=== PATIENT | male | born 1975 | race Caucasian/White ===

== ENCOUNTER 2017-04-04 18:18 | Emergency (ER) | payer OTHER ==
[~2017-04-04] VITALS: Ht 198.1 cm; Wt 120.2 kg
--- NOTE | 2017-04-04 18:42 | PHYS DOC ---
Adult General Chief Complaint Chief Complaint: HEAT EXPOSURE HPI HPI Patient is a 42 year old gentleman who has a history significant for non- insulin-dependent diabetes, hypertension, no history of liver lung or kidney problems. Denies any history of strokes or MIs in the past. Denies any abdominal surgeries except for a cholecystectomy many years ago. Denies any tobacco alcohol or drugs. Is not allergic to any medications. Patient presented to the ER today secondary to a syncopal episode that occurred earlier today while he was at [employer]. Patient reports that the growth [employer] Approximately noon time and he was doing well. Patient reports he ate a barbecue sandwich for lunch. 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 Patient reports that prior to this a couple episode he felt cool clammy and sweaty. Patient denied any chest pain shortness of breath or diarrhea. Patient reports that earlier today he had 2 episodes of nausea vomiting for the syncopal episode. Patient denies any bowel movements earlier today. Patient's physical exam is unremarkable. Patient's alert awake oriented 3. Patient is in good spirits. Patient's heart was regular rate and rhythm. Lungs were clear with no wheezing rales or rhonchi. Abdomen was soft nontender no rebound or guarding. There is no palpable masses. Extremities were without clubbing cyanosis or edema. Patient does have axillary sweat. Patient's his mucus membranes are dry. Assessment and plan this is a 42-year-old gentleman who likely presents with a syncopal episode secondary to dehydration and heat exposure. Patient will have an EKG done. Patient's EKG revealed normal sinus rhythm at a heart rate of [address]-T wave abnormalities without any evidence of ST elevation NE. We will check patient's CBC chemistry and troponin. Patient will be hydrated in the ER with 2 L of normal saline. Patient will be reevaluated for possible discharged home if all his labs remained stable and patient maintained stable try to stay. I believe that the symptoms are most likely secondary to dehydration secondary to being outside in the heat. 936: Patient's labs were all unremarkable except for an elevated creatinine and WBCs in the urine. I believe that the elevated creatinine is likely secondary to dehydration versus chronic and is not acute issue. I will discuss this with the patient and he will need to have his labs repeated within a week. We will start the patient does Rocephin and IV antibiotics given the white cells in his urine. Patient is otherwise clinically and hemodynamically stable feels much improved be discharged home in stable condition. Review of Systems Review of Systems Constitutional: Denies fever or chills [] Eyes: Denies change in visual acuity, redness, or eye pain [] All other review systems are negative except as documented in the history of present illness portion. Current Medications Current Medications Current Medications Medications (Trade) Dose Ordered Sig/Stu Start Time Stop Time Status Last Admin Dose Admin Ceftriaxone Sodium 50 ml @ 100 mls/hr 1X ONCE 04/04/17 22:00 04/04/17 22:20 DC 04/04/17 21:36 100 MLS/HR Sodium Chloride 1,000 ml @ 1,000 mls/hr 1X ONCE 04/04/17 18:45 04/04/17 19:44 DC 04/04/17 20:06 1,000 MLS/HR Allergies Allergies Allergies Coded Allergies Type Severity Reaction Last Updated Verified No Known Drug Allergies 04/04/17 No Physical Exam Physical Exam Constitutional: Well developed, well nourished, no acute distress, non-toxic appearance. [] HENT: Normocephalic, atraumatic, bilateral external ears normal, oropharynx moist, no oral exudates, nose normal. [] Eyes: PERRLA, EOMI, conjunctiva normal, no discharge. [] Neck: Normal range of motion, no tenderness, supple, no stridor. [] Cardiovascular:Heart rate regular rhythm, no murmur [] Lungs & Thorax: Bilateral breath sounds clear to auscultation [] Abdomen: Bowel sounds normal, soft, no tenderness, no masses, no pulsatile masses. [] Skin: Warm, dry, no erythema, no rash. [] Back: No tenderness, no CVA tenderness. [] Extremities: No tenderness, no cyanosis, no clubbing, ROM intact, no edema. [] Neurologic: Alert and oriented X 3, normal motor function, normal sensory function, no focal deficits noted. [] Psychologic: Affect normal, judgement normal, mood normal. [] Current Patient Data Vital Signs Vital Signs Date Time Temp Pulse Resp B/P (MAP) Pulse Ox O2 Delivery O2 Flow Rate FiO2 04/04/17 22:17 86 132/58 (82) Room Air 04/04/17 19:25 99 04/04/17 18:18 98.1 16 98.1 Lab Values Laboratory Tests Test 04/04/17 18:32 04/04/17 18:35 04/04/17 21:03 Sodium Level 139 mmol/L (136-145) Potassium Level 4.0 mmol/L (3.5-5.1) Chloride Level 101 mmol/L (98-107) Carbon Dioxide Level 23 mmol/L (21-32) Anion Gap 15 (6-14) H Blood Urea Nitrogen 27 mg/dL (8-26) H Creatinine 2.5 mg/dL (0.7-1.3) H Estimated GFR (Cockcroft-Gault) 28.6 BUN/Creatinine Ratio 11 (6-20) Glucose Level 276 mg/dL (70-99) H Calcium Level 9.1 mg/dL (8.5-10.1) Total Bilirubin 0.4 mg/dL (0.2-1.0) Aspartate Amino Transferase (AST) 22 U/L (15-37) Alanine Aminotransferase (ALT) 47 U/L (16-63) Alkaline Phosphatase 72 U/L (46-116) Troponin I Quantitative < 0.017 ng/mL (0.000-0.055) Total Protein 7.6 g/dL (6.4-8.2) Albumin 4.0 g/dL (3.4-5.0) Albumin/Globulin Ratio 1.1 (1.0-1.7) White Blood Count 11.2 x10^3/uL (4.0-11.0) H Red Blood Count 4.70 x10^6/uL (4.30-5.70) Hemoglobin 13.8 g/dL (13.0-17.5) Hematocrit 41.2 % (39.0-53.0) Mean Corpuscular Volume 88 fL (79-100) Mean Corpuscular Hemoglobin 29 pg (25-35) Mean Corpuscular Hemoglobin Concent 33 g/dL (31-37) Red Cell Distribution Width 12.5 % (11.5-14.5) Platelet Count 305 x10^3/uL (140-400) Neutrophils (%) (Auto) 76 % (31-73) H Lymphocytes (%) (Auto) 15 % (24-48) L Monocytes (%) (Auto) 8 % (0-9) Eosinophils (%) (Auto) 0 % (0-3) Basophils (%) (Auto) 1 % (0-3) Neutrophils # (Auto) 8.5 x10^3uL (1.8-7.7) H Lymphocytes # (Auto) 1.7 x10^3/uL (1.0-4.8) Monocytes # (Auto) 0.9 x10^3/uL (0.0-1.1) Eosinophils # (Auto) 0.0 x10^3/uL (0.0-0.7) Basophils # (Auto) 0.1 x10^3/uL (0.0-0.2) Urine Collection Type Void Urine Color Yellow Urine Clarity Cloudy Urine pH 5.0 Urine Specific Mcclure 1.020 Urine Protein 30 mg/dL (NEG-TRACE) Urine Glucose (UA) 500 mg/dL (NEG) Urine Ketones (Stick) Trace mg/dL (NEG) Urine Blood Negative (NEG) Urine Nitrite Negative (NEG) Urine Bilirubin Negative (NEG) Urine Urobilinogen Dipstick 0.2 mg/dL (0.2 mg/dL) Urine Leukocyte Esterase Negative (NEG) Urine RBC 0 /HPF (0-2) Urine WBC 11-20 /HPF (0-4) Urine Squamous Epithelial Cells Few /LPF Urine Bacteria Moderate /HPF (0-FEW) Urine Hyaline Casts Moderate /HPF Urine Mucus Mod /LPF Laboratory Tests 04/04/17 18:35 Laboratory Tests 04/04/17 18:32 Microbiology 04/04/17 Urine Culture - Final, Complete 04/04/17 Urine Culture Result 1 ([facility]) - Final, Complete EKG EKG [] Radiology/Procedures Radiology/Procedures [] Course & Med Decision Making Course & Med Decision Making Pertinent Labs and Imaging studies reviewed. (See chart for details) [] Dragon Disclaimer Dragon Disclaimer This electronic medical record was generated, in whole or in part, using a voice recognition dictation system. Departure Departure Impression: Primary Impression: Elevated serum creatinine Additional Impressions: Dehydration Heat exhaustion Disposition: HOME, SELF-CARE Condition: IMPROVED Patient Instructions: Creatinine, Blood (Serum Creatinine), Urinary Tract Infection Additional Instructions: Please follow up with her doctor to have your kidney function checked. Her creatinine was elevated today which might be secondary to being dehydration however you need to have that repeated to make sure that it is not from any intrinsic kidney problems. Your test results also revealed that you have some white blood cells in her urine. We are giving you a dose of IV antibiotics and will be sending you home with a prescription for Keflex to take. Again your urine will need to be repeated by her primary care physician within 1 week to make sure that the infection has cleared. Scripts Cephalexin (KEFLEX) 500 Mg Capsule 500 MG PO QID for 10 Days, CAP Prov: KARINA BOCANEGRA MD 04/04/17 Problem Qualifiers KARINA BOCANEGRA MD Apr 04, 2017 18:42
[2017-04-04] MEDS ORDERED: SITA1TAB7 PO (18:45)
[2017-04-04] MEDS ORDERED: IV NORMAL SALINE 1000ML BAG 1,000 ML IV ONE ×2 (18:45)
[2017-04-04] MEDS ORDERED: CANA300T PO (18:45)
[2017-04-04] MEDS ORDERED: LISI-334 PO (18:45)
[2017-04-04 18:49] LABS: BASO # 0.1 x10^3/uL (0.0-0.2); BASO % 1 % (0-3); EOS % 0 % (0-3); HEMATOCRIT 41.2 % (39.0-53.0); HEMOGLOBIN 13.8 g/dL (13.0-17.5); LYMPH # 1.7 x10^3/uL (1.0-4.8); LYMPH % 15 % (24-48); MEAN CORPUSCULAR HEMOGLOBIN 29 pg (25-35); MEAN CORPUSCULAR HGB CONC 33 g/dL (31-37); MEAN CORPUSCULAR VOLUME 88 fL (79-100); MONO % 8 % (0-9); NEUT % 76 % (31-73); PLATELET COUNT 305 x10^3/uL (140-400); RED CELL DISTRIBUTION WIDTH 12.5 % (11.5-14.5); WHITE BLOOD COUNT 11.2 x10^3/uL (4.0-11.0)
[2017-04-04 18:56] LABS: CALCIUM 9.1 mg/dL (8.5-10.1); CREATININE 2.5 mg/dL (0.7-1.3); GFR 28.6
--- NOTE | 2017-04-04 18:58 | EKG ---
[facility] [address] [place] [address] Test Date: 2017-04-04 Test Time: 18:29:34 Pat Name: JACKSON DOYLE Department: Room: Gender: M [employer]: : 1975 Requested By: KARINA BOCANEGRA Order Number: [id number] Reading MD: Measurements Intervals [place] Rate: 92 P: -126 [place]: 128 QRS: 55 QRSD: 90 T: 43 QT: 332 QTc: 415 Interpretive Statements SINUS RHYTHM OTHERWISE NORMAL ECG RI6.01 No previous ECG available for comparison
[2017-04-04 19:02] LABS: ALBUMIN/GLOBULIN RATIO 1.1 (1.0-1.7); TOTAL BILIRUBIN 0.4 mg/dL (0.2-1.0); TOTAL PROTEIN 7.6 g/dL (6.4-8.2)
[2017-04-04 21:08] LABS: BILIRUBIN,URINE NEGATIVE (NEG); GLUCOSE,URINE 500 mg/dL (NEG); NITRITE,URINE NEGATIVE (NEG); PROTEIN,URINE 30 mg/dL (NEG-TRACE); UROBILINOGEN,URINE 0.2 mg/dL (0.2 mg/dL)
[2017-04-04 21:14] LABS: BACTERIA,URINE MODERATE /HPF (0-FEW); RBC,URINE 0 /HPF (0-2); SQUAMOUS EPITHELIAL CELL,UR FEW /LPF
[2017-04-04] MEDS ORDERED: CEPH-264 PO (21:40)
[2017-04-04 22:17] VITALS: BP 132/58
== END 2017-04-04 22:17 | disposition home or self-care (01) ==
LOC: ER 18:18
DX: R74.8 Abnormal levels of other serum enzymes (principal); E86.0 Dehydration; T67.5XXA Heat exhaustion, unspecified, initial encounter; E11.9 Type 2 diabetes mellitus without complications; I10 Essential (primary) hypertension; Z90.49 Acquired absence of other specified parts of digestive tract; X30.XXXA Exposure to excessive natural heat, initial encounter; Y93.89 Activity, other specified; Y92.89 Other specified places as the place of occurrence of the external cause; Y99.8 Other external cause status
CPT/HCPCS: 36415; 80053; 81001; 84484; 85027; 87086; 93005; 96361; 96365; 99285; J0690; J7030